=== PATIENT | female | born 1965 | race Caucasian/White ===

== ENCOUNTER 2017-06-30 16:13 | Day surgery (SDC) | payer OTHER ==
[2017-06-29 10:59] VITALS: BMI 32.5
[2017-06-30] MEDS ORDERED: PROPOFOL 20 ML ONE (16:56)
[2017-06-30] MEDS ORDERED: BUPIVACAINE HCL 0.25% 125 MG/50 ML VIAL ONE (17:13)
[2017-06-30] MEDS ORDERED: MIDAZOLAM HCL 2 MG/2 ML SINGLE DOSE VIAL ONE (17:15)
[2017-06-30] MEDS ORDERED: DESFLURANE GAS 240 ML BOTTLE IH ONE (18:21)
[2017-06-30] MEDS ORDERED: BUPIVACAINE HCL/PF 0.25% (2.5MG/ML) 10 ML VIAL IJ ONE (18:33)
[2017-06-30] MEDS ORDERED: oxyCODONE HCL 5 MG TABLET PO PRN (18:47)
[2017-06-30] MEDS ORDERED: oxyCODONE HCL 5 MG TABLET ONE (19:01)
[2017-06-30] MEDS ORDERED: oxyCODONE HCL 5 MG TABLET PO ONE (19:06)
[2017-06-30 20:27] VITALS: BP 132/80; PULSE 80; TEMP 97.9
--- NOTE | 2017-07-06 12:41 | OP ---
DATE OF OPERATION: 06/30/2017 PREOPERATIVE DIAGNOSIS: Left long finger ulnar digital nerve laceration. POSTOPERATIVE DIAGNOSIS: Left long finger ulnar digital nerve laceration. OPERATIVE PROCEDURE: Left long finger ulnar digital nerve repair. SURGEON: Harry Elaine MD RN ANTE PARTUM: YASMANI Keen ANESTHESIA: General. COMPLICATIONS: None. ESTIMATED BLOOD LOSS: Minimal. INDICATIONS FOR PROCEDURE: The patient is a 51-year-old female with the above finding indicated for operative treatment. Risks, benefits, and alternatives were discussed with the patient at length. Proper informed consent was obtained. DESCRIPTION OF PROCEDURE: After proper identification of the patient and correct operative site, the patient was brought to the operating room and placed supine on the operative table with prominences well padded. General anesthesia was given by the anesthesiologist adequate for procedure. The left upper extremity was prepped and draped in the usual sterile fashion. A well-padded was placed with a sterile prep. An Esmarch bandage was exsanguinated to the left upper extremity. A tourniquet was inflated to 250 mmHg. A Reid incision was made and centered over the patient's prior laceration and extended slightly proximally and distally. Blunt and sharp dissection was done through the subcutaneous tissues. Neurovascular bundle was identified and was found to have been lacerated just distal to the trifurcation. Two of the three main branches were cut. The operative microscope was brought into the field, and the nerve ends were debrided and easily approximated and repaired with a 9-0 and 8-0 nylon suture. This provided tension-free repair of the 2 branches. Epineural repair was performed. The wound was irrigated with saline and repaired with 5-0 fast absorbing plain gut. Sterile dressings were applied. Splint was placed. The patient was reversed from anesthesia and brought to the recovery room in stable condition. Donte Brito, the nursing home assistant administrator, was integral throughout this procedure. The procedure could not have been performed without a skilled operative nursing home assistant administrator. Chelsy [id number]
== END 2017-06-30 20:20 | disposition home or self-care (01) ==
LOC: FASU 16:13
PROVIDERS: ATTEND Orthopaedic Surgery Hand Surgery
PROC: 01Q40ZZ Repair Ulnar Nerve, Open Approach (ICD-10-PCS; principal; 2017-06-30 17:41)
DX: S64.493A Injury of digital nerve of left middle finger, initial encounter (principal); X58.XXXA Exposure to other specified factors, initial encounter; Y93.9 Activity, unspecified; Y92.9 Unspecified place or not applicable
CPT/HCPCS: 94760